=== PATIENT | male | born 1975 ===

== ENCOUNTER 2017-01-11 00:41 | Emergency (ER) | payer SELFPAY | END 2017-01-11 00:45 | disposition left against medical advice (07) | LOC: ED 00:41 | DX: M54.2 Cervicalgia (principal); M54.9 Dorsalgia, unspecified; R51 Headache; Z53.21 Procedure and treatment not carried out due to patient leaving prior to being seen by health care provider; V89.2XXA Person injured in unspecified motor-vehicle accident, traffic, initial encounter; Y93.9 Activity, unspecified; Y92.9 Unspecified place or not applicable; Y99.9 Unspecified external cause status ==